=== PATIENT | male | born 1980 | race African-American/Black ===

== ENCOUNTER 2017-01-28 22:44 | Emergency (ER) | payer BC, MEDICAID ==
[~2017-01-28] VITALS: Ht 185.4 cm; Wt 86.3 kg
[2017-01-28 23:02] VITALS: BP 146/82
== END 2017-01-29 03:30 | disposition left against medical advice (07) ==
LOC: ER 23:16
DX: Z53.21 Procedure and treatment not carried out due to patient leaving prior to being seen by health care provider (principal)